=== PATIENT | female | born 1945 | race Caucasian/White ===

== ENCOUNTER 2020-06-15 07:49 | Outpatient (CLI) | payer BC ==
--- NOTE | 2020-06-15 10:05 | BD ---
DEXA BONE DENSITY STUDY: Date: 06/15/2020 HISTORY: Postmenopausal. FINDINGS: Lumbar Spine: BMD (g/cm2) L1 1.004 T-Score: +0.1 L2 1.011 T-Score: -0.2 L3 1.009 T-Score: -0.7 L4 0.988 T-Score: -0.7 Total 1.003 T-Score: -0.4 Left Femoral Neck: 0.573 T-Score: -2.5 Total Femur: 0.813 T-Score: -1.1 IMPRESSION: 1. Osteoporosis of the left femoral neck. 2. Normal bone mineral density of the lumbar spine. POS: [facility]
== END 2020-06-15 07:50 | disposition home or self-care (01) ==
LOC: BICMAMMO 07:49
PROVIDERS: ATTEND Internal Medicine Hematology & Oncology
DX: Z13.820 Encounter for screening for osteoporosis (principal); M81.0 Age-related osteoporosis without current pathological fracture; Z78.0 Asymptomatic menopausal state
CPT/HCPCS: 77080